=== PATIENT | female | born 1940 | race Caucasian/White ===

== ENCOUNTER → 2017-11-15 | Outpatient (CLI) | payer MEDICARE ==
[~2017-11-15] MED LIST: DUO-KAPS1 CAP PO; LEVAQUIN 5500 MG/TA1 PO; NORCO 325 MG-51 TAB PO; ULTRAM 50MG TAB50 MG PO
== END ==
LOC: COL.RAD 12:59
DX: S09.90XA Unspecified injury of head, initial encounter (principal); G31.9 Degenerative disease of nervous system, unspecified

== ENCOUNTER → 2018-03-02 | Outpatient (CLI) | payer MEDICARE | LOC: COL.RAD 08:53 | DX: N30.21 Other chronic cystitis with hematuria (principal) ==

== ENCOUNTER 2018-04-07 12:53 | Outpatient (CLI) | payer MEDICARE ==
[~2018-04-07] VITALS: Ht 162.6 cm; Wt 53.0 kg
[2018-04-07 13:11] VITALS: BP 123/56; PULSE 89; TEMP 97.6
[2018-04-07] MEDS ORDERED: PLAQUENIL 200M200 MG PO (13:29)
[2018-04-07] MEDS ORDERED: PROTONIX 40MG T40 MG PO (13:30)
[2018-04-07] MEDS ORDERED: CELLCEPT 5500 MG/TAB PO ×2 (13:31)
[2018-04-07] MEDS ORDERED: ZOLOFT 100MG100 MG PO (13:32)
[2018-04-07] MEDS ORDERED: IRON18 MG1 PO (13:33)
[2018-04-07] MEDS ORDERED: ASPIRIN E.C. 8181 MG PO (13:37)
[2018-04-07] MEDS ORDERED: VITAMIN D31000 I1 PO (13:38)
[2018-04-07] MEDS ORDERED: MELATONIN5 M1 PO (13:38)
[2018-04-07] MEDS ORDERED: CRANBERRY FRUI405 MG PO (13:39)
[2018-04-07] MEDS ORDERED: TURMERIC500 MG PO (13:40)
[2018-04-07] MEDS ORDERED: MAG-OX 400400 MG/TAB PO (13:40)
[2018-04-07] MEDS ORDERED: BOSWELLIA EXTRACT PO (13:42)
== END 2018-04-07 14:19 | disposition home or self-care (01) ==
LOC: EUO 12:53
DX: M81.0 Age-related osteoporosis without current pathological fracture (principal)
CPT/HCPCS: J3489

== ENCOUNTER → 2018-09-19 | Outpatient (CLI) | payer MEDICARE ==
[~2018-09-19] MED LIST changes: +ASPIRIN E.C. 8181 MG PO; +BOSWELLIA EXTRACT PO; +CELLCEPT 5500 MG/TAB PO; +CRANBERRY FRUI405 MG PO; +IRON18 MG1 PO; +MAG-OX 400400 MG/TAB PO; +MELATONIN5 M1 PO; +PLAQUENIL 200M200 MG PO; +PROTONIX 40MG T40 MG PO; +TURMERIC500 MG PO; +VITAMIN D31000 I1 PO; +ZOLOFT 100MG100 MG PO
== END ==
LOC: MC.RAD 10:13
DX: Z12.31 Encounter for screening mammogram for malignant neoplasm of breast (principal)

== ENCOUNTER 2019-04-25 14:43 | Outpatient (CLI) | payer MEDICARE ==
[~2019-04-25] VITALS: Ht 162.6 cm; Wt 49.5 kg
[2019-04-25 15:00] VITALS: BP 137/76; PULSE 94; TEMP 97.8
== END 2019-04-25 15:40 | disposition home or self-care (01) ==
LOC: EUO 14:43
DX: M81.0 Age-related osteoporosis without current pathological fracture (principal)
CPT/HCPCS: J3489

== ENCOUNTER 2020-03-22 08:52 | Outpatient (CLI) | payer MEDICARE ==
[2020-03-22] VITALS (10 sets, daily range): BP systolic 147–171; BP diastolic 62–82; PULSE 64–90
[~2020-03-22] VITALS: Ht 162.6 cm; Wt 45.0 kg
[2020-03-22] MEDS ORDERED: VITAMINC1000TA (09:19)
[2020-03-22] MEDS ORDERED: B-121000 MCG PO (09:20)
[2020-03-22] MEDS ORDERED: PRESERVISION1 SGL PO (09:21)
[2020-03-22] MEDS ORDERED: [UNRECOGNIZED DRUG - OTHER] (09:22)
[2020-03-22] MEDS ORDERED: ANORO IH (09:22)
--- NOTE | 2020-03-22 10:20 | NUR ---
Dr Vazquez started procedure
--- NOTE | 2020-03-22 10:29 | NUR ---
specimans obtained from lung, placed in formulin. bandaid over site, pt up in w/c to go to [facility]
--- NOTE | 2020-03-22 10:30 | NUR ---
Report from Hien SCHULTZ. Pt transferred from to bed independently. VSS. Right Side bandaid CD&I.
--- NOTE | 2020-03-22 12:49 | NUR ---
INT discontinued intact. DR. Valentine ok to discharge. Discharge instructions given. Transferred to private car
== END 2020-03-22 12:50 | disposition home or self-care (01) ==
LOC: COL.RAD 08:52
DX: C48.1 Malignant neoplasm of specified parts of peritoneum (principal); R91.1 Solitary pulmonary nodule

== ENCOUNTER 2020-04-19 15:32 | Outpatient (CLI) | payer MEDICARE ==
[~2020-04-19] VITALS: Ht 162.6 cm; Wt 46.0 kg
[~2020-04-19 15:32] MED LIST changes: +ANORO IH; +B-121000 MCG PO; +PRESERVISION1 SGL PO; +VITAMINC1000TA; +[UNRECOGNIZED DRUG - OTHER]
[2020-04-19 16:33] VITALS: BP 120/70; PULSE 91; TEMP 97.3
== END 2020-04-19 17:00 | disposition home or self-care (01) ==
LOC: EUO 15:32
DX: M81.0 Age-related osteoporosis without current pathological fracture (principal)
CPT/HCPCS: J3489

== ENCOUNTER 2020-09-24 10:17 | Emergency (ER) | payer MEDICARE ==
[~2020-09-24] VITALS: Ht 160 cm; Wt 43.2 kg
[~2020-09-24 10:17] MED LIST changes: -[UNRECOGNIZED DRUG - OTHER]; +[UNRECOGNIZED DRUG - OTHER] PO
[2020-09-24 10:27] VITALS: TEMP 98.4
[2020-09-24 10:39] LABS: BASO % 0.4 % (0.0-2.0); EOS % 0.1 % (0-4.0); GRAN # 6.8 (1.4-6.5); GRAN % 83.3 % (42.2-75.2); HEMOGLOBIN 10.9 g/dl (12.5-16.0); LYMPH # 0.5 (1.2-3.4); MEAN CELL VOLUME 96 fl (80.0-100.0); MEAN CORPUSCULAR HEMOGLOBIN 32 pg (27.0-31.0); MEAN CORPUSCULAR HGB CONC 34 g/dl (33.0-37.0); MEAN PLATELET VOLUME 9.5 fl (7.4-10.4); MONO # 0.8 (0.1-0.6); MONO % 9.8 % (1.7-9.3); PLATELET COUNT 158 K/mm3 (130-400); RED BLOOD COUNT 3.36 M/mm3 (4.10-5.30); REDCELL DISTRIBUTION WIDTH-CV 20.8 % (11.5-14.5)
[2020-09-24 10:40] LABS: HEMATOCRIT 32.4 % (37.0-47.0)
[2020-09-24 10:49] LABS: ALANINE AMINOTRANSFERASE 75 U/L (4-34); ALBUMIN 3.6 gm/dL (3.5-5.0); ANION GAP 10 mmol/L (7-16); AST,SGOT 87 U/L (15-37); BILIRUBIN,TOTAL 1.3 mg/dL (0.0-1.0); BLOOD UREA NITROGEN 22 mg/dL (7-17); CALCIUM 8.7 mg/dL (8.4-10.2); CARBON DIOXIDE 22 mmol/L (22-30); CHLORIDE 96 mmol/L (98-107); CREATININE, serum 0.77 (0.52-1.25); GLUCOSE 88 mg/dL (74-106); POTASSIUM 3.7 mmol/L (3.4-5.0); SODIUM 127 mmol/L (137-145); TOTAL PROTEIN 8.5 gm/dL (6.4-8.2)
[2020-09-24 10:56] LABS: ALKALINE PHOSPHATASE 1417 U/L (50-136)
[2020-09-24 11:02] LABS: TROPONIN-I < 0.012 ng/mL (0.000-0.035)
[2020-09-24 11:15] LABS: ARTERIAL BLD GAS O2 SATURATION 91.7 % (92-100); ARTERIAL BLD GAS TCO2 CT 20.3; ARTERIAL BLOOD GAS BASE EXCESS -3.8 (-2-2); ARTERIAL BLOOD GAS HCO3 19.4 meq/L (22-26); ARTERIAL BLOOD GAS PCO2 29.1 mmHg (35-45); ARTERIAL BLOOD GAS PO2 62.1 mmHg (80-100); ARTERIAL BLOOD GAS pH 7.44 (7.35-7.45)
[2020-09-24] MEDS ORDERED: LIPITOR 40MG TA40 MG PO (12:24)
[2020-09-24] MEDS ORDERED: LASIX 20MG TABL20 MG PO (12:25)
[2020-09-24] MEDS ORDERED: PLAQUENIL 200M200 MG PO (12:27)
[2020-09-24] MEDS ORDERED: TOPROL XL 25MG25 MG PO (12:27)
[2020-09-24] MEDS ORDERED: ENTRESTO 24 MG1 EACH PO (12:28)
[2020-09-24] MEDS ORDERED: ASPIRIN 81M81 MG/TA2 PO (12:30)
[2020-09-24] MEDS ORDERED: ZOLOFT 50MG50 MG PO (12:30)
[2020-09-24] MEDS ORDERED: MAG-OX 400400 MG/TAB PO (12:31)
[2020-09-24] MEDS ORDERED: K-TAB10 PO (12:35)
[2020-09-24] MEDS ORDERED: AMOXICILLIN 8751 TAB PO (12:45)
[2020-09-24] MEDS ORDERED: DOXYCYCLINE 10100 MG PO (12:45)
[2020-09-24 13:10] VITALS: BP 126/51; PULSE 85
== END 2020-09-24 13:10 | disposition home or self-care (01) ==
LOC: COL.ER 10:17
PROVIDERS: Emergency Medicine; Physician Assistant
DX: J18.9 Pneumonia, unspecified organism (principal); J96.10 Chronic respiratory failure, unspecified whether with hypoxia or hypercapnia; I25.10 Atherosclerotic heart disease of native coronary artery without angina pectoris; I50.9 Heart failure, unspecified; F17.210 Nicotine dependence, cigarettes, uncomplicated; Z88.2 Allergy status to sulfonamides; Z79.82 Long term (current) use of aspirin
CPT/HCPCS: J0696; Q9967

== ENCOUNTER 2020-11-21 07:54 | Outpatient (CLI) | payer MEDICARE ==
[~2020-11-21] VITALS: Ht 160 cm; Wt 41.5 kg
[~2020-11-21 07:54] MED LIST changes: +AMOXICILLIN 8751 TAB PO; +ASPIRIN 81M81 MG/TA2 PO; +DOXYCYCLINE 10100 MG PO; +ENTRESTO 24 MG1 EACH PO; +K-TAB10 PO; +LASIX 20MG TABL20 MG PO; +LIPITOR 40MG TA40 MG PO; +TOPROL XL 25MG25 MG PO; +ZOLOFT 50MG50 MG PO
[2020-11-21 08:41] LABS: HEMOGLOBIN 11.7 g/dl (12.5-16.0); MEAN CELL VOLUME 100 fl (80.0-100.0); MEAN CORPUSCULAR HEMOGLOBIN 33 pg (27.0-31.0); MEAN CORPUSCULAR HGB CONC 33 g/dl (33.0-37.0); MEAN PLATELET VOLUME 8.9 fl (7.4-10.4); PLATELET COUNT 115 K/mm3 (130-400); RED BLOOD COUNT 3.52 M/mm3 (4.10-5.30); REDCELL DISTRIBUTION WIDTH-CV 15.8 % (11.5-14.5)
[2020-11-21 08:42] LABS: HEMATOCRIT 35.3 % (37.0-47.0)
[2020-11-21 08:43] VITALS: BP 130/60; PULSE 68; TEMP 97.7
[2020-11-21 08:44] LABS: INR 1.1 (0.8-3.0); PROTHROMBIN TIME 12.3 SECONDS (9.7-12.8)
[2020-11-21 08:49] LABS: CALCIUM 9.9 mg/dL (8.4-10.2); CREATININE, serum 0.81 (0.52-1.25); POTASSIUM 4.7 mmol/L (3.4-5.0)
--- NOTE | 2020-11-21 10:10 | NUR ---
PT AWAKE AND ALERT AFTER CHENCHO, REPORT FROM ROGER SCHULTZ. PT IS PWD, RESP REG AND UNLABORED. ABLE TO SWALLOW WITH NO PROBLEM. WCTM.
[2020-11-21 10:20] VITALS: BP 126/55; PULSE 74
[2020-11-21 10:35] VITALS: BP 127/63; PULSE 73
[2020-11-21 10:50] VITALS: BP 105/55; PULSE 72
[2020-11-21 11:05] VITALS: BP 99/69; PULSE 80
[2020-11-21 11:20] VITALS: BP 147/64; PULSE 77
--- NOTE | 2020-11-21 11:39 | NUR ---
PT IS READY TO GO HOME. WE HAVE REVIEWED DC AND FU INSTRUCTIONS. PT AND DAUGHTER DENY ANY QUESTIONS. PT IS AMBULATORY TO BR WITH STEADY GAIT. IV DC'D WITH CATH INTACT, DRESSING IS APPLIED. TO EXIT VIA WHEELCHAIR.
== END 2020-11-21 13:04 | disposition home or self-care (01) ==
LOC: EUO 07:54 → COL.RAD 07:54
PROVIDERS: Internal Medicine Adult Congenital Heart Disease
DX: I08.3 Combined rheumatic disorders of mitral, aortic and tricuspid valves (principal); I71.2 Thoracic aortic aneurysm, without rupture
CPT/HCPCS: J2704; J7120

== ENCOUNTER → 2020-12-23 | Outpatient (CLI) | payer MEDICARE | LOC: COL.RAD 14:13 | DX: I71.2 Thoracic aortic aneurysm, without rupture (principal); I71.4 Abdominal aortic aneurysm, without rupture; Z96.89 Presence of other specified functional implants | CPT/HCPCS: Q9967 ==

== ENCOUNTER 2021-11-10 12:13 | Inpatient (IN) | payer MEDICARE ==
[~2021-11-10] VITALS: Ht 162.6 cm; Wt 39.8 kg
[2021-11-10 13:52] LABS: BASO % 0.5 % (0.0-2.0); EOS % 0.2 % (0.0-4.0); GRAN # 4.6 K/mm3 (1.4-6.5); GRAN % 80.7 % (42.2-75.2); HEMOGLOBIN 10.6 g/dl (12.5-16.0); LYMPH # 0.5 K/mm3 (1.2-3.4); LYMPH % 8.7 % (20.0-51.0); MEAN CELL VOLUME 91 fl (80.0-100.0); MEAN CORPUSCULAR HEMOGLOBIN 30 pg (27-31); MEAN CORPUSCULAR HGB CONC 32 g/dl (33.0-37.0); MEAN PLATELET VOLUME 9.7 fl (7.4-10.4); MONO # 0.6 K/mm3 (0.1-0.6); MONO % 9.7 % (1.7-9.3); PLATELET COUNT 91 K/mm3 (130-400); RED BLOOD COUNT 3.58 M/mm3 (4.10-5.30); REDCELL DISTRIBUTION WIDTH-CV 17.7 % (11.5-14.5)
[2021-11-10 13:59] LABS: HEMATOCRIT 32.7 % (37.0-47.0)
[2021-11-10 14:15] LABS: ALBUMIN 3.5 gm/dL (3.4-4.8); BILIRUBIN,TOTAL 0.9 mg/dL (0.2-1.2); CALCIUM 9.1 mg/dL (8.4-10.2); CREATININE, serum 0.96 mg/dL (0.57-1.11); MAGNESIUM 1.7 mg/dL (1.6-2.6); PHOSPHOROUS 4.3 mg/dL (2.3-4.7); TOTAL PROTEIN 7.5 gm/dL (6.2-8.1)
[2021-11-10 15:12] LABS: MUCOUS Present (NOT PRESENT); PH 7 (5-8); SQUAMOUS EPITHELIAL None Seen /hpf (0-10); URINE APPEARANCE Clear (CLEAR/HAZY); URINE BACTERIA None Seen /hpf (NONE SEEN); URINE BILIRUBIN Negative (NEGATIVE); URINE BLOOD 1+ (NEGATIVE); URINE COLOR Yellow (YELLOW); URINE GLUCOSE Negative (NEGATIVE); URINE KETONE 1+ (NEGATIVE); URINE LEUKOCYTE ESTERASE Negative (NEGATIVE); URINE NITRATE Negative (NEGATIVE); URINE PROTEIN(semi-quant) 2+ (NEGATIVE); URINE RBC 20-50 /hpf (0-2); URINE UROBILINOGEN Negative (NEGATIVE); URINE WBC 0-2 /hpf (0-2)
[2021-11-10 15:27] LABS: COLLECTION METHOD CLEAN CATCH
[2021-11-10 18:00] VITALS: BP 179/62; PULSE 70; TEMP 98.6
--- NOTE | 2021-11-10 18:15 | NUR ---
PATIENT ADMITED INTO ROOM 346 FROM ER WITH DYSPHAGIA. PATIENT HAS HX OF LUNG & PANCREATIC CANCER. CT SHOWS MASS, TUMOR VS STRICTURE. NPO. A&O BUT VERY KAKE. HEAD TO TOE ASSESSMENT COMPLETE. SCD'S TO BLE. FRIEND AT BEDSIDE. ORIENTED TO ROOM. CALL LIGHT IN REACH.
[2021-11-10 21:04] VITALS: BP 151/76; PULSE 85; TEMP 97.6
--- NOTE | 2021-11-10 22:34 | NUR ---
ASSSESSMENT COMPLETE. PT. SLEEPING IN BED BUT WOKE WHEN THIS NURSE ENTERED THE ROOM. A&O. NO COMPLAINTS OF PAIN. AN EXTRA BLANKET WAS PROVIDED. CALL LIGHT IN REACH. NO FURHTER NEEDS AT THIS TIME.
[2021-11-11] VITALS (10 sets, daily range): BP systolic 129–186; BP diastolic 53–87; PULSE 70–94; TEMP 97.5–98.4
--- NOTE | 2021-11-11 06:44 | NUR ---
DR MCDONNELL CALLED, WANTS TO DO EGD AT NOON. NOTIFIED NYDIA SCHULTZ.
[2021-11-11 06:56] LABS: GRAN # 2.7 K/mm3 (1.4-6.5); GRAN % 88.5 % (42.2-75.2); HEMOGLOBIN 11.1 g/dl (12.5-16.0); LYMPH # 0.3 K/mm3 (1.2-3.4); LYMPH % 8.6 % (20.0-51.0); MEAN CELL VOLUME 93 fl (80.0-100.0); MEAN CORPUSCULAR HEMOGLOBIN 30 pg (27-31); MEAN CORPUSCULAR HGB CONC 32 g/dl (33.0-37.0); MEAN PLATELET VOLUME 10.7 fl (7.4-10.4); MONO # 0.1 K/mm3 (0.1-0.6); MONO % 2.6 % (1.7-9.3); PLATELET COUNT 81 K/mm3 (130-400); RED BLOOD COUNT 3.68 M/mm3 (4.10-5.30); REDCELL DISTRIBUTION WIDTH-CV 17.7 % (11.5-14.5)
[2021-11-11 07:09] LABS: CALCIUM 8.3 mg/dL (8.4-10.2); CREATININE, serum 0.77 mg/dL (0.57-1.11); MAGNESIUM 1.6 mg/dL (1.6-2.6); POTASSIUM 3.8 mmol/L (3.5-4.5)
[2021-11-11 07:14] LABS: HEMATOCRIT 34.3 % (37.0-47.0)
--- NOTE | 2021-11-11 09:46 | NUR ---
balcony worker met with patient to discuss discharge plan. Patient reports that she lives at home alone in [place]. She is fully independent with her ADL's and does not utilize any DME to assist with mobility. Patient states that her PCP is but that she hasn't seen her in a long time. Patient utilizes [employer] for perscriptions with no cost difficulties. Patient states that she does have a DP- estbalished listing her daughter Jana ([phone]). Patient states that we should have a copy on file. Nothing found in the patients EMR or the patients chart. Patient is planning on returning home once medically ready. Discharge plan: Home
--- NOTE | 2021-11-11 10:20 | NUR ---
Initial visit; Patient thanked [facility] for looking in on her and offering God's blessings and keeping her in [employer] [employer]'s prayers and following up with her as well.
--- NOTE | 2021-11-11 11:50 | NUR ---
PATIENT GOING DOWN FOR EGD. CONSENT ON CHART. FAMILY AT BEDSIDE. PATIENT NOW OFF FLOOR.
--- NOTE | 2021-11-11 13:05 | NUR ---
PATIENT BACK IN ROOM FROM EGD, FOOD BOLUS WAS FOUND AND REMOVED. ESOPHAGUS WAS ALSO DILATED TO 12MM. PATIENT WILL SEE OUTPATIENT FOR ANOTHER ESOPHAGEAL STRETCHING WITH A GOAL OF 15MM. A&O. VSS. DENIES PAIN OR NAUSEA. SOFT DIET, LUNCH ORDERED. POST-OP FLUIDS INFUSING INTO LEFT AC IV. FAMILY AT BEDSIDE. PATIENT DOING WELL
--- NOTE | 2021-11-11 21:45 | NUR ---
ASSESSMENT COMPLETE. PT LYING IN BED. A&O. NO COMPLAINTS OF PAIN OR NAUSEA. INT TO LEFT AC PATENT. NO FURTHER NEEDS AT THIS TIME. CALL LIGHT IN REACH.
[2021-11-12 03:40] VITALS: BP 154/67; PULSE 74; TEMP 97.9
[2021-11-12 06:02] LABS: BASO % 0.1 % (0.0-2.0); GRAN # 7.8 K/mm3 (1.4-6.5); GRAN % 87.4 % (42.2-75.2); HEMATOCRIT 29.8 % (37.0-47.0); LYMPH # 0.5 K/mm3 (1.2-3.4); LYMPH % 5.4 % (20.0-51.0); MEAN CELL VOLUME 91 fl (80.0-100.0); MEAN CORPUSCULAR HEMOGLOBIN 31 pg (27-31); MEAN CORPUSCULAR HGB CONC 34 g/dl (33.0-37.0); MEAN PLATELET VOLUME 10.1 fl (7.4-10.4); MONO # 0.6 K/mm3 (0.1-0.6); MONO % 6.7 % (1.7-9.3); PLATELET COUNT 87 K/mm3 (130-400); RED BLOOD COUNT 3.28 M/mm3 (4.10-5.30); REDCELL DISTRIBUTION WIDTH-CV 17.7 % (11.5-14.5)
[2021-11-12 06:14] LABS: CALCIUM 7.9 mg/dL (8.4-10.2); CREATININE, serum 0.82 mg/dL (0.57-1.11); MAGNESIUM 1.8 mg/dL (1.6-2.6); POTASSIUM 3.4 mmol/L (3.5-4.5)
[2021-11-12 08:00] VITALS: BP 147/67; PULSE 89; TEMP 97.4
== END 2021-11-12 10:27 | disposition home or self-care (01) | DRG 391 ==
LOC: COL.ER 12:13 → SURG 15:36
PROVIDERS: Emergency Medicine; Internal Medicine Gastroenterology; Physician Assistant; ADMIT Internal Medicine
PROC: 0D728ZZ Dilation of Middle Esophagus, Via Natural or Artificial Opening Endoscopic (ICD-10-PCS; principal; 2021-11-11 12:00)
DX: K22.2 Esophageal obstruction (principal); E43 Unspecified severe protein-calorie malnutrition; C34.90 Malignant neoplasm of unspecified part of unspecified bronchus or lung; Z68.1 Body mass index [BMI] 19.9 or less, adult; M32.9 Systemic lupus erythematosus, unspecified; F17.210 Nicotine dependence, cigarettes, uncomplicated; E86.0 Dehydration; I10 Essential (primary) hypertension; J44.9 Chronic obstructive pulmonary disease, unspecified; I25.10 Atherosclerotic heart disease of native coronary artery without angina pectoris; R62.7 Adult failure to thrive; M19.90 Unspecified osteoarthritis, unspecified site; F32.A Depression, unspecified; G62.9 Polyneuropathy, unspecified; E87.6 Hypokalemia; I25.2 Old myocardial infarction; Z85.89 Personal history of malignant neoplasm of other organs and systems; Z79.82 Long term (current) use of aspirin
CPT/HCPCS: 99223-AI; 99232-AI; 99239; C1726; C9113; J2704; J2920; J3475; J7030; J7120; Q9967

== ENCOUNTER 2021-12-09 13:05 | Emergency (ER) | payer MEDICARE ==
[2021-12-09 13:21] VITALS: TEMP 98
[2021-12-09 13:57] LABS: COLLECTION METHOD CLEAN CATCH
[2021-12-09 14:06] LABS: BASO % 0.5 % (0.0-2.0); EOS % 0.7 % (0.0-4.0); GRAN % 71.2 % (42.2-75.2); LYMPH # 0.6 K/mm3 (1.2-3.4); LYMPH % 12.9 % (20.0-51.0); MEAN CELL VOLUME 92 fl (80.0-100.0); MEAN CORPUSCULAR HEMOGLOBIN 31 pg (27-31); MEAN CORPUSCULAR HGB CONC 33 g/dl (33.0-37.0); MEAN PLATELET VOLUME 9.1 fl (7.4-10.4); MONO # 0.6 K/mm3 (0.1-0.6); MONO % 14.5 % (1.7-9.3); PLATELET COUNT 122 K/mm3 (130-400); RED BLOOD COUNT 3.61 M/mm3 (4.10-5.30); REDCELL DISTRIBUTION WIDTH-CV 17.6 % (11.5-14.5)
[2021-12-09 14:15] LABS: MUCOUS Present (NOT PRESENT); PH 7 (5-8); SQUAMOUS EPITHELIAL None Seen /hpf (0-10); URINE APPEARANCE Clear (CLEAR/HAZY); URINE BACTERIA None Seen /hpf (NONE SEEN); URINE BILIRUBIN Negative (NEGATIVE); URINE BLOOD Negative (NEGATIVE); URINE COLOR Yellow (YELLOW); URINE GLUCOSE Negative (NEGATIVE); URINE KETONE Negative (NEGATIVE); URINE LEUKOCYTE ESTERASE Negative (NEGATIVE); URINE NITRATE Negative (NEGATIVE); URINE PROTEIN(semi-quant) Negative (NEGATIVE); URINE UROBILINOGEN Negative (NEGATIVE)
[2021-12-09 14:15] LABS: HEMATOCRIT 33.2 % (37.0-47.0)
[2021-12-09 14:16] LABS: ALANINE AMINOTRANSFERASE 22 U/L (0-55); ALBUMIN 3.4 gm/dL (3.4-4.8); ALKALINE PHOSPHATASE 112 U/L (40-150); ANION GAP 15 mmol/L (7-16); AST,SGOT 32 U/L (5-34); BILIRUBIN,TOTAL 0.5 mg/dL (0.2-1.2); BLOOD UREA NITROGEN 30 mg/dL (10-20); CALCIUM 9.1 mg/dL (8.4-10.2); CARBON DIOXIDE 19 mmol/L (23-31); CHLORIDE 95 mmol/L (98-107); CREATININE, serum 0.88 mg/dL (0.57-1.11); GLUCOSE 98 mg/dL (70-99); LIPASE 149 U/L (8-78); POTASSIUM 4.5 mmol/L (3.5-4.5); SODIUM 129 mmol/L (136-145); TOTAL PROTEIN 7.7 gm/dL (6.2-8.1)
[2021-12-09 14:24] LABS: TROPONIN-I < 0.010 ng/mL (0.00-0.033)
[2021-12-09 18:12] VITALS: BP 152/68; PULSE 72
== END 2021-12-09 18:14 | disposition home or self-care (01) ==
LOC: COL.ER 13:05
PROVIDERS: Nurse Practitioner Family
DX: R53.81 Other malaise (principal); R11.10 Vomiting, unspecified; F17.210 Nicotine dependence, cigarettes, uncomplicated; Z20.822 Contact with and (suspected) exposure to COVID-19; Z28.310 Unvaccinated for COVID-19
CPT/HCPCS: J7030; Q9967

== ENCOUNTER 2021-12-12 09:46 | Day surgery (SDC) | payer MEDICARE ==
[~2021-12-12] VITALS: Ht 162.6 cm; Wt 39.0 kg
[2021-12-12 12:05] VITALS: BP 141/80; PULSE 74; TEMP 97.2
[2021-12-12 12:25] VITALS: BP 152/75; PULSE 73; TEMP 16
--- NOTE | 2021-12-12 12:25 | NUR ---
PATIENT ARRIVES TO ROOM 1 VIA CART. ASSIST TO CHAIR X 2. PATIENT REQUESTS COFFEE AND WATER. VITAL SIGNS WNL. SISTER AT BEDSIDE. WAITING FOR DOCTOR TO COME SEE THE PATIENT.
[2021-12-12 12:40] VITALS: BP 175/78; PULSE 67
--- NOTE | 2021-12-12 12:40 | NUR ---
PATIENT IS AWAKE AND ALERT. DOCTOR AT BEDSIDE. SHE IS DRINKING WATER AND COFFEE WITHOUT DIFFICULTY. SISTER AT BEDSIDE. WILL CONTINUE TO MONITOR.
[2021-12-12 12:55] VITALS: BP 183/84; PULSE 68
--- NOTE | 2021-12-12 12:55 | NUR ---
PATIENT IS READY FOR DISCHARGE SOON DOCTOR IS DONE SPEAKING WITH HER. IV DISCONTINUED AT 1:20. SISTER STILL AT BEDSIDE. WILL TAKE PATIENT DOWNSTAIRS IN WHEELCHAIR SOON DOCTOR IS DONE SPEAKING.
== END 2021-12-12 13:30 | disposition home or self-care (01) ==
LOC: SDCO 09:46
DX: K22.2 Esophageal obstruction (principal); R13.10 Dysphagia, unspecified; F17.210 Nicotine dependence, cigarettes, uncomplicated
CPT/HCPCS: C1726; J2704; J7030

== ENCOUNTER 2022-01-30 07:31 | Day surgery (SDC) | payer MEDICARE ==
[~2022-01-30] VITALS: Ht 160 cm; Wt 38.2 kg
[2022-01-30 09:15] VITALS: BP 133/63; PULSE 88
[2022-01-30 09:30] VITALS: BP 104/66; PULSE 91
[2022-01-30 09:45] VITALS: BP 120/67; PULSE 82
--- NOTE | 2022-01-30 10:14 | NUR ---
0915: Patient brought back into bay 7 from endo procedure. Report received from MARION Schaffer. Patient vitally stable on room air. Denies pain or nausea. Requesting applesauce and water. Sister at bedside. Call light left within reach. 0925: Dr. Avalos in to see patient. 0930: Patient tolerating food and drink well. Denies pain or nausea. Vital signs stable on room air. 0945: Patient meets discharge criteria. IV removed without complications. Went through discharge instructions with patient and mom. Questions answered. Patient got dressed and escorted to the patient entrance via wheelchair. Patient got into personal vehicle and left in the care of their family member.
[2022-01-30 15:39] VITALS: BP 111/68; PULSE 92; TEMP 97.5
== END 2022-01-30 10:05 | disposition home or self-care (01) ==
LOC: SDCO 07:31
DX: K22.2 Esophageal obstruction (principal); F17.210 Nicotine dependence, cigarettes, uncomplicated
CPT/HCPCS: C1726; J2704; J3301; J7030

== ENCOUNTER 2022-02-27 10:08 | Day surgery (SDC) | payer MEDICARE ==
[~2022-02-27] VITALS: Ht 160 cm; Wt 37.0 kg
[2022-02-27] MEDS ORDERED: CENA K20 MEQ/15 PO (11:00)
[2022-02-27] MEDS ORDERED: MIRTAZAPINE7.5 MG PO (11:01)
[2022-02-27] MEDS ORDERED: MAGONATE M54 MG/5 ML PO (11:02)
[2022-02-27 12:00] VITALS: BP 132/77; PULSE 70; TEMP 97.4
[2022-02-27 12:15] VITALS: BP 117/55; PULSE 67
--- NOTE | 2022-02-27 12:21 | NUR ---
1200 - PT arrives from procedure was settled by Beatriz SCHULTZ. Verbal report then obtained. PT provided snack and drink; denies pain/nausea. Call ko is within reach. Visitor remains present. Vitals obtained. SO2 placed on R big toe. 1215 - Vitals obtained. has spoken w/ PT. PT expressed desire to be discharged. PT is tolerating snack and drink.
[2022-02-27 12:30] VITALS: BP 125/58; PULSE 73
[2022-02-27 12:42] VITALS: BP 109/66; PULSE 77; TEMP 97.5
--- NOTE | 2022-02-27 12:45 | NUR ---
1230 - VSS. IV discontinued. Catheter tip intact. Pressure bandage applied. NO redness or swelling noted. DC instructions and educational material reviewed w/ PT who verbalized understanding and signed the related paperwork. Questions answered to PT satisfaction. PT refused RN assistance changing into personal clothes; call ko remains within reach and visitor states she will assist PT.
--- NOTE | 2022-02-27 12:52 | NUR ---
1250 - PT dismissed from endo via wheelchair to the PT entrence by Emmanuel SCHULTZ; PT has DC packet and personal belongings and was transferred into the care of Maia, who is driving private car.
== END 2022-02-27 12:54 | disposition home or self-care (01) ==
LOC: SDCO 10:08
DX: K22.2 Esophageal obstruction (principal); F17.210 Nicotine dependence, cigarettes, uncomplicated; Z85.118 Personal history of other malignant neoplasm of bronchus and lung; Z93.3 Colostomy status; Z79.82 Long term (current) use of aspirin; I25.2 Old myocardial infarction; I11.0 Hypertensive heart disease with heart failure; I50.9 Heart failure, unspecified
CPT/HCPCS: C1726; J2704; J3301; J7120

== ENCOUNTER 2022-03-18 05:31 | Day surgery (SDC) | payer MEDICARE ==
[~2022-03-18] VITALS: Ht 165.1 cm; Wt 37.3 kg
[2022-03-18] VITALS (11 sets, daily range): BP systolic 87–124; BP diastolic 47–558; PULSE 71–101; TEMP 97.5–98.3
[~2022-03-18 05:31] MED LIST changes: +CENA K20 MEQ/15 PO; +MAGONATE M54 MG/5 ML PO; +MIRTAZAPINE7.5 MG PO
[2022-03-18 06:39] LABS: BILIRUBIN,TOTAL 0.4 mg/dL (0.2-1.2); CREATININE, serum 0.86 mg/dL (0.57-1.11); POTASSIUM 4.3 mmol/L (3.5-4.5); TOTAL PROTEIN 7.6 gm/dL (6.2-8.1)
[2022-03-18] MEDS ORDERED: NORCOELIX PO ×2 (08:52→08:58)
--- NOTE | 2022-03-18 09:20 | NUR ---
Patient returns to room 8 per cart from PACU accompanied by Fawn RN and is awake and alert. Temp 97.6 and sats 99% on 1L per nasal cannula. Dressing clean and dry around G-tube insertion site. IV fluids infusing and site is free of redness. Siderails up x2 and call light in reach. Daughter in room. Encouraged to rest.
--- NOTE | 2022-03-18 09:35 | NUR ---
Restless at times. Asking to go home. Encouraged to rest.
--- NOTE | 2022-03-18 09:50 | NUR ---
Restless at times. Encouraged to rest. Continues to ask to go home. Informed that she is requiring oxygen to maintain oxygen sats. Daughter in room.
--- NOTE | 2022-03-18 10:05 | NUR ---
Positioned for comfort. Warm blanket on back. Sats 88% without oxygen. On oxygen at 1L per nasal cannula.
--- NOTE | 2022-03-18 10:20 | NUR ---
Resting without complaints. Dressing clean and dry around G-tube site.
--- NOTE | 2022-03-18 10:50 | NUR ---
Less restless and has been napping. Tolerates few sips of water.
--- NOTE | 2022-03-18 11:20 | NUR ---
Resting with eyes closed and not disturbed.
--- NOTE | 2022-03-18 12:20 | NUR ---
Continues to rest with eyes closed and not disturbed. Remains on oxygen at 1L when resting and sats 93-96%. p
--- NOTE | 2022-03-18 13:20 | NUR ---
Resting and not disturbed. Siderails up x2. On oxygen at 1L per nasal cannula.
--- NOTE | 2022-03-18 14:10 | NUR ---
Dr. Cisneros updated on need for oxygen. Patient is complaining of pain a the G tube insertion site and medicated with Richton elixir 5mg. Ambulates with walker to bathroom and gait steady with one person assist and walker.
--- NOTE | 2022-03-18 14:43 | NUR ---
Attempted to call report to floor. Nurse unavailable to take report at this time. Nurse will call when available.
--- NOTE | 2022-03-18 15:17 | NUR ---
Report called to Evelin SCHULTZ and patient transferred to room 324 per wheelchair with oxygen 1L per nasal cannula with all personal belongings.
--- NOTE | 2022-03-18 16:15 | NUR ---
[employer] worker met with patient's daughter while patient was in surgery for a peg tube placement. Patient lives alone and has been independent with her activities of daily living. Patient plans to return home with home health for assisted for peg tube teaching and physical therapy. Worker provided [employer] home health share information and daughter chose [facility]. Worker contacted [facility] and gave the referral with faxed clinical information. Cecilio with home health states they can accept and admit on Wednesday. Worker provided durable medical equipment options to obtain feeding and daughter chose [facility] and gave the referral. Devendra with home medical states they can supply for tube feedings and will plan to deliver to patient's home. Daughter aware they can stop by home medical on their way home tomorrow for first shipment.
--- NOTE | 2022-03-18 16:22 | NUR ---
Correction, daughter chose [facility] as first choice and nephrology social worker provided referral and faxed information. concrete worker spoke with Ann at Dr Estrada's office and confirmed they will send [facility] agency the home health orders.
--- NOTE | 2022-03-18 16:31 | NUR ---
Ada with [facility] states they can admit patient on Wednesday.
--- NOTE | 2022-03-18 17:00 | NUR ---
PATIENT BROUGHT TO FLOOR FROM SAME DAY SURGERY. PATIENT ALERT TO SELF AND ORIENTED X3. PATIENT DISPLAYS INTERMITTENT CONFUSION DURING CONVERSATION. DAUGHTER IN ROOM HELPS REORIENT PATIENT. PATIENT PRESENTS FROM SURGERY WITH G-TUBE PLACEMENT. PATIENT IS ON 1L O2 PER NC. PATIENT HAS BRUISING AND ABRAISIONS ON LEFT ELBOW AND LEFT HERNANDEZ X2. PATIENT HAS IV TO LEFT FA THAT IS INT. PATIENT TOLERATING CLEARS WELL. PATIENT AMBULATED TO BATHROOM. BED ALARM ACTIVATED AND CALL LIGHT WITHIN REACH.
--- NOTE | 2022-03-19 00:08 | NUR ---
PATIENT MOVED TO 325 AT SHIFT CHANGE. ALERT BUT CONFUSED. AMBULATED TO ROOM WITH WALKER AND SBA. G TUBE SITE WITH DRAIN GAUZE IS CDI, NO REDNESS OR IRRITATION NOTED. REFUSES TO WEAR O2 THROUGHOUT NIGHT. REFUSED MIDNIGHT VITALS. PATIENT CONFUSED FREQUENTLY AND NEEDS REORIENTATION OFTEN.
[2022-03-19 04:25] VITALS: BP 91/59; PULSE 94; TEMP 98.4
[2022-03-19 07:29] VITALS: BP 112/67; PULSE 79; TEMP 97.9
--- NOTE | 2022-03-19 08:00 | NUR ---
PATIENT IS ORIENTED TO PERSON BUT IS OTHERWISE CONFUSED. HX OF DEMENTIA. CQ DEVELOPER REPORTED THAT PATIENT WAS VERY CONFUSED LAST NIGHT, SET OFF BED ALARM SEVERAL TIMES, AND CALLED HER DAUGHTER AT 0200. PATIENT IS PLEASANTLY CONFUSED THIS AM, BED ALARM ON. PATIENT IS ALSO A SMOKER AND SEEMS EAGER TO DISCHARGE. VSS. REPORTS PAIN IN ABD AROUND G-TUBE SITE WITH ANY ACTIVITY. GAVE PRN LIQUID NORCO PER SEP. G-TUBE DRESSING IS CD&I. DIETARY TO CONSULT WITH PATIENT TODAY AND START ON TF. NO C/O N/V AT THIS TIME. CLEAR LIQUID DIET. LEFT FORARM IV TO INT. HEAD TO TOE ASSESSMENT COMPLETE. PATIENT IS VERY THIN, MALNURISHED WITH BONY STATURE. NOTED SKIN ISSUES, SEE SHIFT ASSESSMENT. PATIENT MOVES INDEPENDENTLY BUT ADMITS SHE HAS FALLEN AT HOME. NO OTHER NEEDS AT THIS TIME. CALL LIGHT IN REACH. BED ALARM ON. PATIENT'S DAUGHTER TO COME LATER THIS AM.
--- NOTE | 2022-03-19 11:00 | NUR ---
PLACED NICOTINE PATCH PER ORDERS. STARTED BOLUS TF PER ORDERS. GAVE INSTRUCTION AND DEMO TF FOR PATIENT & DAUGHTER. WILL MONITOR TOLERANCE. PATIENT TO DO NEXT TF.
--- NOTE | 2022-03-19 11:38 | NUR ---
Patient's signed tube feeding informations/orders faxed to [facility].
[2022-03-19 11:48] VITALS: BP 95/55; PULSE 91; TEMP 97.3
[2022-03-19 15:44] VITALS: BP 132/48; PULSE 91; TEMP 97.5
--- NOTE | 2022-03-19 17:10 | NUR ---
PATIENT DISCHARGING HOME WITH HH. JUST ROUNDED, SEE ORDERS. GAVE DISCHARGE INSTRUCTIONS, E-SCRIPT SENT, GAVE TUBE FEEDING SUPPLIES, AND ANSWERED QUESTIONS/CONCERNS. PATIENT WAS ABLE TO DEMO TUBE FEEDING AND HAS TOLERATED BOLUS FEEDINGS WELL. PATIENT DISCHARGING VIA WC TO PERSONAL VEHICLE WITH DAUGHTER. IV DC'D. PATIENT IS DRESSED, PACKED, AND ESCORTED OUT.
--- NOTE | 2022-03-31 16:38 | NUR ---
Called to check on pt at [phone] no answer.
== END 2022-03-19 17:15 | disposition home health service (06) ==
LOC: SDCO 05:31 → SURG 15:30 → SDCO 03-19 17:15
PROVIDERS: Surgery
DX: K22.2 Esophageal obstruction (principal); R63.4 Abnormal weight loss; C48.2 Malignant neoplasm of peritoneum, unspecified; F17.210 Nicotine dependence, cigarettes, uncomplicated; E43 Unspecified severe protein-calorie malnutrition; Z68.1 Body mass index [BMI] 19.9 or less, adult; Z79.82 Long term (current) use of aspirin
CPT/HCPCS: OP; J0330; J0690; J1100; J2370; J2405; J2704; J3010; J7120